=== PATIENT | male | born 1985 | race Caucasian/White ===

== ENCOUNTER → 2023-02-18 12:50 | Outpatient (BNVA) | payer SELFPAY | PROVIDERS: Family Provider Family Medicine; PCP Family Medicine; Visit Provider Emergency Medicine | DX: R39.9 Unspecified symptoms and signs involving the genitourinary system (principal) | CPT/HCPCS: 81000 ==

== ENCOUNTER 2025-04-01 08:28 | Outpatient (CLI) | payer OTHER, SELFPAY ==
[2025-04-01 09:51] LABS: Hematocrit 49.1 % (37-53); Hemoglobin 16.80 g/dL (11.27-16.99); Mean Corpuscular HGB Conc 34.2 g/dL (30-55); Mean Corpuscular Hemoglobin 30.9 pg (27-33); Mean Corpuscular Volume 90.3 fl (82-101); Nucleated Red Blood Cells % 0 %; Platelet Count 223 10^3/cmm (157-399); Red Blood Count 5.44 10^6/uL (3.85-5.65); White Blood Count 3.93 10^3/uL (3.29-11.43)
[2025-04-01 10:21] LABS: Alanine Aminotransferase 28 U/L (0-41); Albumin Level 4.7 g/dL (3.5-5.2); Alkaline Phosphatase 56 U/L (40-130); Anion Gap 14.2 (5-19); Aspartate Amino Transferase 28 U/L (0-40); Blood Urea Nitrogen 19 mg/dL (6-20); Calcium 9.3 mg/dL (8.5-10.5); Carbon Dioxide 27 mmol/L (22-29); Chloride 102 mmol/L (98-107); Ferritin 293 ng/mL (30-400); Globulin 2.8 g/dL (1.3-4.6); Glucose 94 mg/dL (65-115); Iron 130 ug/dL (59-158); Osmolality Calculated 290 mOsm/kg (285-295); Potassium 4.2 mmol/L (3.5-5.1); Sodium 139 mmol/L (136-145); Total Iron Binding Capacity 328 mcg/dl; Total Protein 7.5 g/dL (6.6-8.7); Unsaturated Iron Binding 198 ug/dL (112-347)
== END 2025-04-01 08:29 | disposition home or self-care (01) ==
PROVIDERS: PCP Family Medicine; Visit Provider Physician Assistant Medical
DX: E29.1 Testicular hypofunction (principal); R53.83 Other fatigue; R73.01 Impaired fasting glucose
CPT/HCPCS: 36415; 80053; 82642; 82670; 82679; 82728; 83540; 83550; 84402; 84403; 85025